=== PATIENT | female | born 1940 | race Caucasian/White ===

== ENCOUNTER → 2017-08-22 | Outpatient (CLI) | payer OTHER, BC ==
[~2017-08-22] VITALS: Ht 157.5 cm; Wt 59.0 kg
[~2017-08-22] MED LIST: ARTIFICIAL TEAR15 M1 OPHTHALMIC; ASPIRIN81 M2 PO; BENAZEPRIL HCL20 MG PO; BIOTIN1000 MCG PO; CALCIUM 600 +1 EAC1 PO; CALCIUM500 M1 PO; CARAFATE1 GM/10 ML PO; CO Q-10100 MG PO; COLACE 100 MG100 MG PO; ESTRADIOL 1 MG T1 M1 PO; ESTROPIPATE PO; ESTROPIPATE0.75 MG PO; FISH OIL 1,0001 EAC5 PO; HYDROCODONE-AP1 EA11 PO; MAGNESIUM OXID250 MG PO; MAGNESIUM400 MG PO; MULTIVITAMINS PO; MULTIVITAMINS1 EAC7 PO; NEXIUM40 MG PO; NITROGLYCERIN0.4 MG SUBLING; NORCO 5-325 TA1 EACH PO; OGEN PO; PRAVACHOL40 MG PO; PREVACID15 MG; PREVACID15 MG PO; PROBIOTIC1 EAC1 PO; PROBIOTIC1 EACH PO; PROTONIX40 M1 PO; PROTONIX40 M2 PO; SUPER B COMPLE1 EAC2 PO; VALIUM10 MG PO; VALIUM5 MG PO; VITAMIN D1000 UNI1 PO; VOLTAREN GEL 1100 G1 TOP; ZOCOR40 MG PO; ZYRTEC10 M2 PO; [UNRECOGNIZED DRUG - OTHER] PO
--- NOTE | ~2017-08-22 | S ---
[facility] [place] [address] SURGICAL PATH RPT PROCEDURE Name: SANA BARNES Room #: REG ANNABEL StahlAshaZayda.#: [id number] Admission: 08/22/17 Date of : 40 Discharge: Report #: [id number] Path Case #: [id number] PATHOLOGY REPORT COLLECTION DATE: 08/22/2017 RECEIVED DATE: 08/22/2017 SUBMITTING PHYS: Dr. Guanako Aguilar OTHER PHYS: Dr Shruthi Reeves SPECIMEN(S) RECEIVED: A.Bx of small bowel B.Polyp at ascending colon C.Polyp at hepatic flexure * * * * * * * * * * * * FINAL DIAGNOSIS: A. Small bowel mucosa, small bowel, endoscopic biopsy: - No diagnostic abnormalities present. - Negative for villous blunting or increase in intraepithelial lymphocytes. B. Polyp, at ascending colon, endoscopic biopsy: - Tubular adenoma. - Negative for high grade dysplasia. C. Polyp, hepatic flexure, endoscopic biopsy: - Tubular adenoma. - Negative for high grade dysplasia. (IUV:mml; 08/23/2017) PATHOLOGIST: Maria Del Carmen Vilchis M.D. REPORT ELECTRONICALLY SIGNED BY: Maria Del Carmen Vilchis M.D. DATE/TIME: 08/23/2017 13:25 * * * * * * * * * * * * GROSS PATHOLOGY: A. Received in formalin labeled "Sana Barnes BX of small bowel" and consists of 5 soft jacinto tissue fragments ranging in size a 0.1 cm-0.3 cm which are entirely submitted as A1. B. Received in formalin labeled "Gunnar, Sana, polyp at ascending colon" and consists of multiple soft jacinto tissue fragments, 0.4 x 0.4 x 0.3 cm and aggregate which are entirely stated as B1. C. Received in formalin labeled "Gunnar, Sana, polyp at hepatic flexure" and consists of a 0.2 cm soft jacinto tissue fragment which is entirely submitted C1. (JULIETH; 08/22/2017) CLINICAL HISTORY: [address] [place] [address] SURGICAL PATH RPT PROCEDURE Name: SANA BARNES L Room #: [facility].#: [id number] Admission: 08/22/17 Date of : 40 Discharge: Report #: [id number] Path Case #: [id number] Mild gastritis, history Schatzki's ring, colon polyps, diverticulosis. INITIAL CPT CODE(S): A; 28789 B; 50261 C; 21304 Professional services performed by [facility] at [place] [address] [address], [place] [address] Technical services performed by [facility] at [address] [place] [address], [facility] [address], [place] [address]. [facility] [place] [address] PHONE: [phone] DIRECTOR: Perfecto Sullivan M.D. * * * END OF REPORT * * *
--- NOTE | ~2017-08-22 | P ---
[facility] [place] [address] PROCEDURE REPORT Name: LYDIA BARNES Room #: REG [facility]#: [id number] Admission: 08/22/17 Attend Phys: Guanako Aguilar MD Discharge: Date of : 40 Report #: [id number] THIS REPORT FOR: //name// CC: ROBERT Aguilar BRIEF HISTORY: The patient is a 77-year-old woman with history of colon polyps. She also has a history of microscopic colitis. PREOPERATIVE DIAGNOSES: History of colon polyps and microscopic colitis. POSTOPERATIVE DIAGNOSES: 1. Colon polyps. 2. Moderate diverticulosis coli. MEDICATIONS: Deep sedation with propofol for anesthesia. SPECIMEN: 1. Polyp of proximal ascending colon. 2. Polyp, hepatic flexure. ESTIMATED BLOOD LOSS: 3 mL. PROCEDURE: Colonoscopy to cecum and terminal ileum with snare polypectomy. FINDINGS: Prior to propofol sedation, procedure of colonoscopy was discussed with the patient as well as potential risks and its complications. She indicates she understands and desires to proceed. DESCRIPTION OF PROCEDURE: With the patient in left lateral decubitus position, digital examination was completed which revealed no abnormalities. Subsequently, the [employer] video colonoscope introduced in the rectum and advanced under direct vision to the cecum. Done with minimal difficulty. The cecum was identified by the ileocecal valve and the appendiceal orifice. I was able to visualize the distal segment of terminal ileum, which was inspected and noted to be unremarkable. At that point, the scope was withdrawn, and careful circumferential views were obtained. As we withdrew the scope, the prep was noted to be good. Mucosa within normal limits, normal vascular pattern, normal light reflex. As we withdrew the scope in the proximal ascending colon, a flat nodular polyp was seen, it was about 10 mm in greatest dimension. It was elevated with saline and removed by cold snare polypectomy. Two tiny fragments were made and were cleaned up with the biopsy forceps. A total polypectomy was achieved. Scope was further withdrawn, and a 4-5 mm flat polyp was seen in the hepatic flexure and removed by cold snare polypectomy. As we withdrew the scope, the mucosa was otherwise within normal limits throughout the entire colon without evidence of inflammatory disease. A few scattered diverticula were seen [address] [address] PROCEDURE REPORT Name: LYDIA BARNES Room #: REG [facility] Brooke#: [id number] Admission: 08/22/17 Attend Phys: Guanako Aguilar MD Discharge: Date of : 40 Report #: [id number] in the proximal colon, and moderate diverticular disease was seen in the sigmoid colon without endoscopic evidence of diverticulitis. Scope was withdrawn into the rectum and upon retroflexion, no abnormalities were seen. Scope was withdrawn. The patient tolerated the procedure well. CONDITION OF THE PATIENT UPON DISCHARGE: Following procedure, the patient was drowsy, arousable and conversant. She will be discharged home when fully ambulatory. INSTRUCTIONS TO THE PATIENT AND FAMILY AT THE TIME OF DISCHARGE: We will follow up on the path of the polyps. However, due to the flat nature in proximal colon location, suggest return in 3 years. She does have a history of microscopic colitis, had more problems with diarrhea. Inflammatory changes were not seen today. Based on previous discussions, especially since she has not responded to budesonide, we will treat with Colestid. She may use Imodium as needed. If her symptoms do not resolve, she is to return to the office for followup. Last colonoscopy was 3 years ago and withdrawal time from the cecum was 17 minutes 42 seconds. By: 0901 1000 Guanako Aguilar MD /nt
--- NOTE | ~2017-08-22 | P ---
[facility] [place] [address] PROCEDURE REPORT Name: LYDIA BARNES [id number] Admission: 08/22/17 Attend Phys: Guanako Aguilar MD Discharge: Date of : 40 Report #: [id number] THIS REPORT FOR: //name// CC: Shruthi Aguilar BRIEF HISTORY: The patient is a 77-year-old woman with history of recurrent solid-food dysphagia. She has a history of a Schatzki ring. She also has had problems with nausea and vomiting. Vomiting has resolved, but nausea persists, it is noted she is on chronic narcotics. She has a history of microscopic colitis and recurrent diarrhea. PREOPERATIVE DIAGNOSES: Dysphagia and chronic nausea. POSTOPERATIVE DIAGNOSES: 1. Mild erythematous antral gastritis without ulceration. 2. History of Schatzki ring with recurrent dysphagia. MEDICATIONS: Deep sedation with propofol per anesthesia. SPECIMEN: Small bowel biopsy, rule out celiac disease. ESTIMATED BLOOD LOSS: 3 mL PROCEDURE: EGD with biopsy and Sawyer dilation. FINDINGS: Prior to propofol sedation, the procedure of upper endoscopy and dilation was reviewed with the patient as well as potential risks and its complications. She indicates she understands and desires to proceed. DESCRIPTION OF PROCEDURE: With the patient in left lateral decubitus position, the Fuji video endoscope was inserted in the cervical esophagus under direct vision without difficulty. Examination of this organ through its entire length revealed normal esophageal mucosa down the squamocolumnar junction. There is no evidence of ulcers, erosions, or significant hiatus hernia. She has a history of a Schatzki ring, but a definite ring was not seen today, but presumed to be present. Scope was advanced in the stomach, was examined on end view as well as retroflexed views. She has erythema in the antrum. No ulcers or erosions were seen. This has been noted and biopsied in the past. With regards to her nausea, there is no evidence of outlet obstruction or retained solids or liquids in the stomach. Bilious material was not seen in the stomach. Upon retroflexion, no mass lesions were seen. The pylorus was normal. Duodenal bulb was normal. Duodenal sweep down third portion was normal. At that point, the scope was withdrawn and careful circumferential views confirmed the above finding. Biopsies were obtained of the small bowel to rule out celiac disease. [address] [address] PROCEDURE REPORT Name: CAMERONLYDIA Jr Room #: REG [facility]#: [id number] Admission: 08/22/17 Attend Phys: Guanako Aguilar MD Discharge: Date of : 40 Report #: [id number] Following procedure, she was dilated with passage of 50-Moldovan Sawyer dilator. There was no resistance. CONDITION OF THE PATIENT UPON DISCHARGE: Following procedure, the patient was prepared for colonoscopy. INSTRUCTIONS TO THE PATIENT AND FAMILY AT THE TIME OF DISCHARGE: We will follow up on biopsies with regard to celiac disease. Nausea may be the result of her use of narcotics and at this point, would treat symptomatically as needed. She is to return for dilation on an as-needed basis due to recurrence of the dysphagia. Proceed with colonoscopy at this time. By: 0826 0915 Guanako Aguilar MD /nt
== END | disposition home or self-care (01) ==
LOC: GI 06:19
DX: Z09 Encounter for follow-up examination after completed treatment for conditions other than malignant neoplasm (principal); D12.2 Benign neoplasm of ascending colon; D12.3 Benign neoplasm of transverse colon; K57.30 Diverticulosis of large intestine without perforation or abscess without bleeding; K29.60 Other gastritis without bleeding; R13.19 Other dysphagia; I10 Essential (primary) hypertension; E78.00 Pure hypercholesterolemia, unspecified; I25.10 Atherosclerotic heart disease of native coronary artery without angina pectoris; I25.2 Old myocardial infarction; K21.9 Gastro-esophageal reflux disease without esophagitis; Z86.010 Personal history of colon polyps; Z87.19 Personal history of other diseases of the digestive system; Z98.890 Other specified postprocedural states; Z95.5 Presence of coronary angioplasty implant and graft; Z90.711 Acquired absence of uterus with remaining cervical stump; Z90.49 Acquired absence of other specified parts of digestive tract; Z98.41 Cataract extraction status, right eye; Z98.42 Cataract extraction status, left eye; Z88.0 Allergy status to penicillin; Z88.2 Allergy status to sulfonamides; Z88.8 Allergy status to other drugs, medicaments and biological substances; Z79.82 Long term (current) use of aspirin; Z79.891 Long term (current) use of opiate analgesic; Z79.899 Other long term (current) drug therapy
CPT/HCPCS: 62110; 62900

== ENCOUNTER → 2019-03-02 | Outpatient (CLI) | payer MEDICARE ==
[~2019-03-02] VITALS: Ht 157.5 cm; Wt 59.0 kg
[~2019-03-02] MED LIST changes: +ACID REDUCER20 MG PO; +COLESTIPOL HCL1 G1 PO; +LOMOTIL TABLET1 EACH PO
--- NOTE | 2019-03-04 16:09 | PATH ---
[facility] [address] [place] [address] [place] [address] PATHOLOGY RPT PROCEDURE Name: SANA BARNES Room #: REG ANNABEL Ashlie.#: [id number] Admission: 03/02/19 Date of : 40 Discharge: Report #: [id number] Path Case #: [id number] [facility] Accession Number: [id number] . 01 Material submitted: . PART A: small bowel - SMALL BOWEL BIOPSY R/O CELIAC PART B: colon - RANDOM BIOPSY OF PROXIMAL COLON R/O MICROSCOPIC COLITIS. Modifiers: proximal PART C: colon - ASCENDING COLON POLYP. Modifiers: ascending PART D: rectum - RANDOM DISTAL COLON/RECTAL R/O MICROSCOPIC COLITIS. Modifiers: distal . 01 Clinical history: . Dysphagia; change in bowel habit A: R/O celiac B, D: R/O microscopic colitis . 02 Diagnosis: A. Small bowel mucosa, small bowel rule out celiac, endoscopic biopsy: - No significant diagnostic abnormalities present. - Negative for villous blunting or increase in intraepithelial lymphocytes. . B. Large intestinal mucosa, random proximal colon, endoscopic biopsy: - Acute colitis associated with thickened subepithelial collagen layer (please see comment). - Negative for dysplasia or malignancy. . C. Tissue designated as "ascending colon polyp", endoscopic biopsy: - Acute colitis associated with thickened subepithelial collagen layer (please see comment). - Negative for dysplasia or malignancy. . D. Large intestinal mucosa, distal colon/rectum, endoscopic biopsy: - Non-specific reactive changes. - Negative for active colitis. - Negative for microscopic colitis. - Negative for dysplasia or malignancy. LBQ 03/04/2019 1312 Local . 02 Comment: Examination of the "proximal colon" and "ascending colon polyp" show a markedly expanded lamina propria underneath mildly thickened subepithelial collagen layer. The overlying epithelium shows cryptitis with rare neutrophils and few eosinophils. Increased apoptotic bodies are identified as well. Denuded surface epithelium is not identified. The lamina propria cellularity shows an increased number of eosinophils. [address] [address] PATHOLOGY RPT PROCEDURE Name: SANA BARNES Jr Room #: REG [facility].#: [id number] Admission: 03/02/19 Date of : 40 Discharge: Report #: [id number] Path Case #: [id number] Overall, the findings are concerning for an active colitis. Inflammatory bowel disease cannot be excluded. An overlapping collagenous colitis cannot be excluded as well. The large intestine mucosa from the distal colon/rectum does not show thickened subepithelial collagen layer. Therefore, the entity "collagenous colitis" is not favored. Please correlate clinically and follow-up as indicated. (IUV/db; 03/04/2019) . 02 Electronically signed: . Maria Del Carmen Vilchis MD, Pathologist NPI- [id number] . 01 Gross description: . A. The specimen is received in formalin, labeled "Sana Gunnar, small bowel biopsy". Received are six segments of pale jacinto soft tissue ranging in size from 0.3 to 0.5 cm in maximum dimensions. The specimen is submitted entirely in cassette A1. . B. The specimen is received in formalin, labeled "Sana Gunnar, random biopsy of proximal colon". Received are seven segments of pale jacinto soft tissue ranging in size from 0.3 to 0.6 cm in maximum dimensions. The specimen is submitted entirely in cassette B1. . C. The specimen is received in formalin, labeled "Sana Gunnar, ascending colon polyp". Received is a segment of pale jacinto soft tissue measuring 1.2 cm in maximum dimensions. The specimen is submitted entirely in cassette C1. . D. The specimen is received in formalin, labeled "Sana Gunnar, random distal colon/rectal biopsy". Received are seven segments of pale jacinto soft tissue ranging in size from 0.3 to 0.5 cm in maximum dimensions. The specimen is submitted entirely in cassette D1. (CAA; 03/03/2019) QA/QA 03/03/[address] [place] [address] . 02 Pathologist provided ICD-10: K52.9, R13.10, R19.4 . 02 CPT . 788511, 918764, 867743, 354803 Specimen Comment: A courtesy copy of this report has been sent to Specimen Comment: [phone], . Specimen Comment: Report sent to / DR KENDALL Performed at: [address], [place], [place] [id number] MD Zachary Rodriguez MD Phone: [phone] Performed at: [address] [address] PATHOLOGY RPT PROCEDURE Name: SANA BARNES Room #: REG ANNABEL Dailey.#: [id number] Admission: 03/02/19 Date of : 40 Discharge: Report #: [id number] Path Case #: [id number] [address] [id number] MD Maria Del Carmen Vilchis MD Phone: [phone]
--- NOTE | 2019-03-05 08:04 | P ---
[facility] [place] [address] PROCEDURE REPORT Name: LYDIA BARNES Room #: REG [facility]#: [id number] Admission: 03/02/19 Attend Phys: Guanako Aguilar MD Discharge: Date of : 40 Report #: [id number] THIS REPORT FOR: //name// CC: Shruthi Aguilar OUTPATIENT UPPER ENDOSCOPY BRIEF HISTORY: The patient is a 79-year-old woman with a history of a Schatzki ring and recurrent solid food dysphagia. She has had recent increase in symptoms of dysphagia. PREOPERATIVE DIAGNOSIS: Dysphagia. POSTOPERATIVE DIAGNOSES: 1. Moderate Schatzki ring. 2. Small hiatus hernia. 3. Diffuse erythematous gastritis. MEDICATIONS: Deep sedation with propofol per anesthesia. SPECIMEN: Small bowel biopsies to rule out celiac disease. ESTIMATED BLOOD LOSS: 3 mL. PROCEDURE: EGD with biopsy and Sawyer dilation. FINDINGS: Prior to propofol sedation, procedure of upper endoscopy was reviewed with the patient as well as potential risks and its complications. She indicates she understands and desires to proceed. DESCRIPTION OF PROCEDURE: With the patient in left lateral decubitus position, the Olympus video endoscope was inserted in the cervical esophagus under direct vision without difficulty. Examination of this organ through its entire length revealed normal esophageal mucosa down the squamocolumnar junction. The squamocolumnar junction was inspected. There was no evidence of ulcers, erosions or [place]so mucosa. Intermittently, a moderate Schatzki ring was seen. In addition, there was a 2 cm sliding type hiatus hernia associated with the ring. The mucosa and hernia was unremarkable. Scope was advanced in the stomach, was examined on end view as well as retroflexed views. She does have an erythematous gastritis and this has been noted in the past. There were no ulcers or erosions. Previous biopsies negative for H. pylori were not repeated today. Upon retroflexion, a small hernia was seen, but no other abnormalities were identified. The pylorus was normal. Duodenal bulb was normal. Duodenal sweep was normal. She also has had worsening diarrhea and small bowel biopsies obtained to evaluate for celiac disease. At that point, the scope was slowly [facility] [address] [place] [address] PROCEDURE REPORT Name: LYDIA BARNES Room #: REG [facility].#: [id number] Admission: 03/02/19 Attend Phys: Guanako Aguilar MD Discharge: Date of : 40 Report #: [id number] withdrawn and careful circumferential views confirmed the above findings. The patient tolerated the procedure well. Subsequently, she was dilated with passage of 54-Amharic Sawyer dilator without difficulty. CONDITION OF THE PATIENT UPON DISCHARGE: Following the procedure, the patient was drowsy and prepared for colonoscopy. INSTRUCTIONS TO THE PATIENT AND FAMILY AT THE TIME OF DISCHARGE: We will follow up on biopsies obtained today. She is to return for dilation on an as needed basis due to recurrence of dysphagia. She may continue use famotidine as needed for heartburn symptoms. Proceed with colonoscopy at this time. <ELECTRONICALLY SIGNED> By: Guanako Aguilar MD 03/05/19 0804 0757 0850 Guanako Aguilar MD /nt
--- NOTE | 2019-03-05 08:04 | P ---
[facility] [place] [address] PROCEDURE REPORT Name: LYDIA BARNES Room #: REG [facility]#: [id number] Admission: 03/02/19 Attend Phys: Guanako Aguilar MD Discharge: Date of : 40 Report #: [id number] THIS REPORT FOR: //name// CC: Shruthi Aguilar BRIEF HISTORY: The patient is a 79-year-old woman who has had a change in bowel habits. She has had increased number and frequency of stools. She also recently has had rectal bleeding. PREOPERATIVE DIAGNOSIS: Change in bowel pattern and rectal bleeding. POSTOPERATIVE DIAGNOSES: 1. Moderate sigmoid diverticulosis coli. 2. Mild mucosal changes suggestive of inflammatory bowel disease. MEDICATIONS: Deep sedation with propofol per anesthesia. SPECIMENS: 1. Random biopsies of proximal colon. 2. Polyp, mid ascending colon. 3. Random biopsies of distal colon and rectum. ESTIMATED BLOOD LOSS: 3 mL. PROCEDURE: Colonoscopy to cecum and terminal ileum with snare polypectomy and biopsy. FINDINGS: Prior to propofol sedation, procedure of colonoscopy discussed with the patient as well as potential risks and its complications. She indicates she understands and desires to proceed. DESCRIPTION OF PROCEDURE: With the patient in left lateral decubitus position, digital examination was completed, which revealed no abnormalities. Subsequently, the Olympus video colonoscope was introduced in the rectum, advanced under direct vision to the cecum. Done with minimal difficulty. The cecum was identified by the ileocecal valve and the appendiceal orifice. I was able to visualize the distal segment of the terminal ileum, which was inspected and noted to be unremarkable. Specifically, there was no evidence of inflammatory bowel disease in the distal ileum. At that point, the scope was slowly withdrawn and careful circumferential views were obtained. Upon slow withdrawal of the scope, the prep was noted to be good. The mucosa was within normal limits, normal vascular pattern, normal light reflex. She does have a history of increasing stool frequency and looseness of the stools. The mucosa was intact. However, in the proximal colon, there was noted to be slight nodular pattern. No ulcers or erosions were seen. Multiple random biopsies [address] [address] PROCEDURE REPORT Name: LYDIA BARNES Jr Room #: REG [facility] Brooke#: [id number] Admission: 03/02/19 Attend Phys: Guanako Aguilar MD Discharge: Date of : 40 Report #: [id number] were obtained. As we withdrew the scope, she was noted to have a 5 mm sessile polyp seen and removed from the mid ascending colon. The scope was further withdrawn as we withdrew the scope distally, the nodularity became much less noticeable. The vascular pattern in the mucosa throughout the entire colon was normal. We also obtained random biopsies of the distal colon and rectum. Again, the mucosa was intact and there was no evidence of ulcers, erosions or no evidence of bleeding in her colon. The scope was withdrawn in the rectum, no abnormalities were seen. Upon retroflexion, no abnormalities were seen. Hemorrhoids were not seen. It was felt likely the blood came from the anal canal, although obvious lesion was not seen. Scope was withdrawn. The patient tolerated the procedure well. CONDITION OF THE PATIENT UPON DISCHARGE: Following procedure, the patient drowsy, aroused, conversant and will be discharged home when fully ambulatory. INSTRUCTIONS TO THE PATIENT AND FAMILY AT THE TIME OF DISCHARGE: The patient with change in bowel habits. She also recently developed rectal bleeding as well. I do not see evidence of Crohn's disease or ulcerative colitis. She has had a history of microscopic colitis in the past and has not responded to recent empiric therapy. We will follow up on biopsies and make further recommendations. In the meantime, she has Colestid and we will have her increase the dose of Colestid and return to see me in followup in the office in several weeks. She also may use Imodium as needed for diarrhea. We will make further recommendations after review of the biopsy reports. Withdrawal time from the cecum was 14 minutes 24 seconds. <ELECTRONICALLY SIGNED> By: Guanako Aguilar MD 03/05/19 0804 0831 0904 Guanako Aguilar MD /nt
== END | disposition home or self-care (01) ==
LOC: GI 06:20
DX: K62.5 Hemorrhage of anus and rectum (principal); K52.9 Noninfective gastroenteritis and colitis, unspecified; K57.30 Diverticulosis of large intestine without perforation or abscess without bleeding; K22.2 Esophageal obstruction; K44.9 Diaphragmatic hernia without obstruction or gangrene; K29.70 Gastritis, unspecified, without bleeding; K21.9 Gastro-esophageal reflux disease without esophagitis; I10 Essential (primary) hypertension; I25.10 Atherosclerotic heart disease of native coronary artery without angina pectoris; E78.5 Hyperlipidemia, unspecified; I25.2 Old myocardial infarction; Z98.890 Other specified postprocedural states; Z79.899 Other long term (current) drug therapy; Z85.828 Personal history of other malignant neoplasm of skin; Z90.711 Acquired absence of uterus with remaining cervical stump; Z90.49 Acquired absence of other specified parts of digestive tract; Z98.41 Cataract extraction status, right eye; Z98.42 Cataract extraction status, left eye; Z88.0 Allergy status to penicillin; Z88.2 Allergy status to sulfonamides; Z88.8 Allergy status to other drugs, medicaments and biological substances; Z79.82 Long term (current) use of aspirin
CPT/HCPCS: 62110; 62900

== ENCOUNTER → 2019-06-29 | Outpatient (CLI) | payer MEDICARE | LOC: SJCVC 10:42 | DX: I25.10 Atherosclerotic heart disease of native coronary artery without angina pectoris (principal); R94.31 Abnormal electrocardiogram [ECG] [EKG]; I25.5 Ischemic cardiomyopathy; E78.00 Pure hypercholesterolemia, unspecified; I10 Essential (primary) hypertension; Z90.49 Acquired absence of other specified parts of digestive tract; Z79.82 Long term (current) use of aspirin; Z79.899 Other long term (current) drug therapy ==

== ENCOUNTER → 2020-02-02 | Outpatient (CLI) | payer MEDICARE | LOC: SJCVC 10:43 | PROVIDERS: ATTEND Internal Medicine Cardiovascular Disease | DX: I25.10 Atherosclerotic heart disease of native coronary artery without angina pectoris (principal); I49.1 Atrial premature depolarization; I10 Essential (primary) hypertension; E78.00 Pure hypercholesterolemia, unspecified; I25.5 Ischemic cardiomyopathy; R68.89 Other general symptoms and signs; Z79.899 Other long term (current) drug therapy ==

== ENCOUNTER → 2020-04-05 | Outpatient (CLI) | payer MEDICARE | LOC: SJCVCIMAG 03-08 10:49 | PROVIDERS: ATTEND Internal Medicine Cardiovascular Disease | DX: I08.1 Rheumatic disorders of both mitral and tricuspid valves (principal); I49.3 Ventricular premature depolarization; I25.10 Atherosclerotic heart disease of native coronary artery without angina pectoris; I42.9 Cardiomyopathy, unspecified; Z79.82 Long term (current) use of aspirin; Z79.899 Other long term (current) drug therapy ==

== ENCOUNTER → 2020-09-06 | Outpatient (CLI) | payer MEDICARE | LOC: SJCVCIMAG 09-02 11:17 | PROVIDERS: ATTEND Internal Medicine Cardiovascular Disease | DX: I73.9 Peripheral vascular disease, unspecified (principal); M79.604 Pain in right leg; M79.605 Pain in left leg; I25.10 Atherosclerotic heart disease of native coronary artery without angina pectoris; I10 Essential (primary) hypertension; E78.00 Pure hypercholesterolemia, unspecified; I25.5 Ischemic cardiomyopathy; Q21.1 Atrial septal defect; R68.89 Other general symptoms and signs; R06.02 Shortness of breath; Z90.710 Acquired absence of both cervix and uterus; Z90.49 Acquired absence of other specified parts of digestive tract; Z98.890 Other specified postprocedural states; Z88.0 Allergy status to penicillin; Z88.8 Allergy status to other drugs, medicaments and biological substances; Z79.82 Long term (current) use of aspirin; Z79.899 Other long term (current) drug therapy ==

== ENCOUNTER → 2021-02-07 | Outpatient (CLI) | payer MEDICARE | LOC: SJCVC 09:32 | PROVIDERS: ATTEND Internal Medicine Cardiovascular Disease | DX: I25.10 Atherosclerotic heart disease of native coronary artery without angina pectoris (principal); I10 Essential (primary) hypertension; E78.00 Pure hypercholesterolemia, unspecified; Q21.1 Atrial septal defect; I25.5 Ischemic cardiomyopathy; M79.604 Pain in right leg; M79.605 Pain in left leg; Z79.82 Long term (current) use of aspirin; Z79.899 Other long term (current) drug therapy; Z72.89 Other problems related to lifestyle; Z88.0 Allergy status to penicillin; Z88.1 Allergy status to other antibiotic agents; Z88.2 Allergy status to sulfonamides; Z88.8 Allergy status to other drugs, medicaments and biological substances ==